=== PATIENT | male | born 1945 | race Caucasian/White ===

== ENCOUNTER 2023-04-28 07:42 | Outpatient (AMB) | payer MEDICARE, BC, SELFPAY ==
--- NOTE | 2023-04-28 08:11 | A.OFFVIS_ITS ---
Intake Vital Signs 04/28/23 08:14 Height 5 ft 8 in Weight 183 lb 4 oz BMI 27.9 BP 140/80 H Blood Pressure Location Rt brachial Position Sitting Respiration 16 Pulse 79 Pulse Source Pulse Oximeter Pulse Oximetry (%) 96 Oxygen Delivery Method Room Air Intake Visit Reasons: NPV-Paresthesia facial for 2.5yrs - Conf t/CW Intake Note: Pt presents to the office for new pt evaluation for paresthesia of the face. He reports hes had some numbness and tingling of the left side of his face. This has been going on for 3 years. It started off as an ear problem that progressed to the numbness . It has since spread throughout the whole cheek. He also c/o memory loss. He states he is becoming more forgetful lately. He states his short term memory is progressively worsening. He often has a hard time identifying things. He explains I'll have a golf ball in my hand and can see thats its a golfball, but cant seem to remember to say golfball . [employer] Required: No Allergies No Known Allergies Allergy (Verified 04/28/23 08:12) Medication List - Last Reconciled 04/28/23 by Dunia Pascual MD amlodipine 10 mg PO DAILY atorvastatin (Lipitor) 20 mg PO DAILY losartan 100 mg PO DAILY methylphenidate HCl (Ritalin) 20 mg PO DAILY olanzapine (Zyprexa) 7.5 mg PO DAILY venlafaxine ER 150 mg PO DAILY HPI HPI Comments History of Present Illness Details 78y/o male comes for evaluation of left facial numbness and tingling.The facial tingling started about 3 years ago - was intermittent and mild - it was in the mid cheek anterior to his left ear.It worsened progressively and also started to involve the lower face and lips.He denies any shooting or burning pain.He denies any speech swallowing issues, denies vertigo, denies diplopia, denies tinnitus.He feels his left eye is weaker . He denies any triggers . Chewing coughing brushing his teeth or cold air did not worsen it. He has ear pain but not severe. About 2 months age he had a course of Amoxicillin for a respiratory infection and since then his tingling and numbness are better. He is also concerned about his short term recall for the past 1 year. He has word finding difficulties . His father and sister were diagnosed with ALzheimers. [facility] Medical History (Updated 04/28/23 @ 09:07 by Dunia Pascual MD) Word finding difficulty Numbness and tingling of left side of face Weakness on left side of face Ocular migraine Erectile dysfunction Hyperlipidemia HTN (hypertension) Facial basal cell cancer Prostate cancer Aortic ectasia Depression ADD (attention deficit disorder) Surgical History Hx of cholecystectomy H/O prostatectomy Family History Father No problems noted. Mother No problems noted. Sister Depression Alzheimers disease Brother Depression Social History Household Members: Spouse Housing: [facility] Alcohol intake: never Patient Tobacco Use Status: Never used Tobacco Review of Systems ENT Reports otalgia Musc Reports tingling Neuro Reports memory loss and Reports tingling Psych Reports memory loss Physical Exam Vital Signs: Last Vital Signs Pulse 79 04/28/23 08:14 Resp 16 04/28/23 08:14 BP 140/80 H 04/28/23 08:14 Pulse Ox 96 04/28/23 08:14 Oxygen Delivery Method Room Air 04/28/23 08:14 BMI result Body Mass Index 27.9 Const General: cooperative, healthy appearing, comfortable and no acute distress Nutritional Appearance: average body habitus Orientation/consciousness: patient oriented x3 Limitations: no limitations Eyes Pupils: Equal, round and reactive pupils present Neuro Other: asymmetry of palpebral fissure- Left facial paresis -mild General: patient oriented x3, gait normal, tone normal, moves all extremities and no focal motor deficits Cranial nerves: Yes Facial sensation intact/muscles of mastication intact, Yes Equal, round and reactive pupils present, Yes Bilaterally intact EOM present, Yes Nystagmus not present and Yes Midline tongue present Cognition (Neuro): normal cognition Gait exam (Neuro): Normal gait present Motor exam (neuro): 5/5 motor strength present throughout and Normal motor muscle tone present throughout Deep tendon reflexes (DTR's): Right triceps reflex intensity grade: 2+, Left triceps reflex intensity grade: 2+, Rt Biceps (C5, C6): 2+, Left biceps reflex intensity grade: 2+, Right brachioradialis reflex intensity grade: 2+, Left brachioradialis reflex intensity grade: 2+, Right patellar reflex intensity grade: 2+ and Left patellar reflex intensity grade: 2+ Coordination: [id number] test normal Orientation What is the (year) (season) (date) (day) (month)?: year, season, date, day and month Where are we (state) (county) (town or city) (hospital) (floor)?: state, county, town or city, hospital/clinic and floor Registration Name of 3 unrelated objects clearly and slowly, then ask patient to repeat all 3 of them. (1st repeat determines score. Make sure they can repeat all three): o bject 1, object 2 and object 3 Attention & Calculation (CHOOSE ONE) Spell WORLD backwards (DLROW): 5 letters Recall Ask patient to repeat the 3 items from question #3.: object 1 and object 2 Language Show patient a wristwatch & ask what it is. Repeat for pencil.: watch and pencil Ask the patient to repeat the phrase 'No ifs, ands, or buts' after you.: correct Ask the patient to 'take a piece of paper with their right hand' 'fold paper in half' 'place paper on floor': take paper in right hand, fold paper in half and place paper on floor Print the sentence 'CLOSE YOUR EYES' on a piece. If patient actually closes eyes then score.: followed written direction Give patient a blank piece of paper & ask to write a sentence. Score if it contains a noun & verb.: sentence contains subject and verb Score Score: 28 Assessment & Plan Assessment & Plan (1) Weakness on left side of face: Comment: ? left facial paresis Code(s): R29.810 - Facial weakness (2) Numbness and tingling of left side of face: Code(s): R20.0 - Anesthesia of skin; R20.2 - Paresthesia of skin (3) Word finding difficulty: Code(s): R47.89 - Other speech disturbances Plan I will evaluate him with MRI brain F/u ENT Refer to Speech therapy. Lab reports from PCP Orders: Orders MR head/brain wo/w con Today R29.810 - Facial weakness Referrals Speech and Hearing Referral R47.89 - Other speech disturbances Coding Level of Care Code New Pt Level 4 (40301) Diagnoses Weakness on left side of face R29.810 Numbness and tingling of left side of face R20.0; R20.2 Word finding difficulty R47.89
[2023-04-28 08:14] VITALS: BP 140/80; PULSE 79; RESP 16; O2SAT 96; BMI 27.9
== END 2023-04-28 08:55 | disposition home or self-care (01) ==
PROVIDERS: Visit Provider Psychiatry & Neurology Neurology
DX: R29.810 Facial weakness (principal); R20.0 Anesthesia of skin; R20.2 Paresthesia of skin; R47.89 Other speech disturbances
CPT/HCPCS: 99204

== ENCOUNTER → 2023-04-28 07:42 | Outpatient (BNVA) | payer MEDICARE, BC, SELFPAY | PROVIDERS: Visit Provider Psychiatry & Neurology Neurology | DX: R29.810 Facial weakness (principal); R47.89 Other speech disturbances; R20.0 Anesthesia of skin; R20.2 Paresthesia of skin | CPT/HCPCS: 99202 ==

== ENCOUNTER 2023-09-06 08:15 | Outpatient (AMB) | payer MEDICARE, BC, SELFPAY ==
--- NOTE | 2023-09-06 08:33 | A.OFFVIS_ITS ---
Vital Signs 09/06/23 08:37 Height 5 ft 8 in Weight 184 lb 6 oz BMI 28.0 BP 124/70 Blood Pressure Location Lt brachial Position Sitting Pulse 70 Pulse Source Pulse Oximeter Pulse Oximetry (%) 96 Oxygen Delivery Method Room Air Intake Visit Reasons: 3mo f/u Paresthesia facial - CONF w/address Intake Note: Patient presents for 3 month F/U. Allergies No Known Allergies Allergy (Verified 09/06/23 08:36) HPI Comments Details: 78 y/o male comes for follow up of left facial numbness and tingling. Pt reports his left facial strength, numbness has been improved. MRI of brain reports normal for his age. Pt also evaluated by [employer] for speech disturbance. Pt scored above norms for his age on all standardized assessment. Pt did not require skilled OT therapy for functional judaism. Pt's hx of the facial tingling started about 3 years ago - was intermittent and mild - it was in the mid cheek anterior to his left ear. It worsened progressively and also started to involve the lower face and lips. He denies any shooting or burning pain. He denies any speech swallowing issues, denies vertigo, denies diplopia, denies tinnitus.He feels his left eye is weaker . He denies any triggers . Chewing coughing brushing his teeth or cold air did not worsen it. He has ear pain but not severe. Pt had treated with Amoxicillin for a respiratory infection couple of months ago, and since then his tingling and numbness are better. [facility] Medical History (Updated 04/28/23 @ 09:07 by Dunia Pascual MD) Word finding difficulty Numbness and tingling of left side of face Weakness on left side of face Ocular migraine Erectile dysfunction Hyperlipidemia HTN (hypertension) Facial basal cell cancer Prostate cancer Aortic ectasia Depression ADD (attention deficit disorder) Surgical History Hx of cholecystectomy H/O prostatectomy Family History Father No problems noted. Mother No problems noted. Sister Depression Alzheimers disease Brother Depression Social History Household Members: Spouse Housing: Condominium Alcohol intake: never Patient Tobacco Use Status: Never used Tobacco Review of Systems Const All systems reviewed & are unremarkable except as noted in HPI and below Physical Exam Vital Signs: Last Vital Signs Pulse 70 09/06/23 08:37 BP 124/70 09/06/23 08:37 Pulse Ox 96 09/06/23 08:37 Oxygen Delivery Method Room Air 09/06/23 08:37 BMI result Body Mass Index 28.0 Const General: cooperative, healthy appearing, comfortable and no acute distress Nutritional Appearance: average body habitus Orientation/consciousness: patient oriented x3 Limitations: no limitations Eyes Pupils: Equal, round and reactive pupils present Neuro Other: asymmetry of palpebral fissure- Left facial paresis -mild General: patient oriented x3, gait normal, tone normal, moves all extremities and no focal motor deficits Cranial nerves: Yes Facial sensation intact/muscles of mastication intact, Yes Equal, round and reactive pupils present, Yes Bilaterally intact EOM present, Yes Nystagmus not present and Yes Midline tongue present Cognition (Neuro): normal cognition Gait exam (Neuro): Normal gait present Motor exam (neuro): 5/5 motor strength present throughout and Normal motor muscle tone present throughout Deep tendon reflexes (DTR's): Right triceps reflex intensity grade: 2+, Left triceps reflex intensity grade: 2+, Rt Biceps (C5, C6): 2+, Left biceps reflex intensity grade: 2+, Right brachioradialis reflex intensity grade: 2+, Left brachioradialis reflex intensity grade: 2+, Right patellar reflex intensity grade: 2+ and Left patellar reflex intensity grade: 2+ Coordination: [id number] test normal Assessment & Plan Assessment & Plan (1) Weakness on left side of face: Comment: ? left facial paresis Code(s): R29.810 - Facial weakness Category: Medical (2) Numbness and tingling of left side of face: Code(s): R20.0 - Anesthesia of skin; R20.2 - Paresthesia of skin Category: Medical (3) Word finding difficulty: Code(s): R47.89 - Other speech disturbances Category: Medical Plan Pt will follow up of with ENT for ear pain. Pt's left facial numbness and the strength has improved.
[2023-09-06 08:37] VITALS: BP 124/70; PULSE 70; O2SAT 96; BMI 28.0
== END 2023-09-06 08:51 | disposition home or self-care (01) ==
PROVIDERS: Visit Provider Nurse Practitioner Family
DX: R29.810 Facial weakness (principal); R20.0 Anesthesia of skin; R20.2 Paresthesia of skin; R47.89 Other speech disturbances
CPT/HCPCS: 99213

== ENCOUNTER → 2023-09-06 08:15 | Outpatient (BNVA) | payer MEDICARE, BC, SELFPAY | PROVIDERS: Visit Provider Nurse Practitioner Family | DX: R29.810 Facial weakness (principal); R47.89 Other speech disturbances; R20.2 Paresthesia of skin | CPT/HCPCS: 99212 ==